=== PATIENT | female | born 1955 | race Caucasian/White ===

== ENCOUNTER → 2017-08-01 | Outpatient (CLI) | payer BC ==
--- NOTE | 2017-08-02 10:53 | MM ---
Reason for exam: screening (asymptomatic). Last mammogram was performed 13 years and 1 month ago. History: Patient is postmenopausal, has history of other cancer at age 52, and is nulliparous. Excisional biopsy of the right breast. Physical Findings: A clinical breast exam by your physician is recommended on an annual basis and results should be correlated with mammographic findings. MG Screening Mammo w CAD Bilateral CC and MLO view(s) were taken. Prior study comparison: March 23, 2016, mammogram, performed at [facility]. September 04, 2014, mammogram, performed at [facility]. The breast tissue is extremely dense which could obscure a lesion on mammography. Stable benign calcifications. There is no discrete abnormality. No significant changes when compared with prior studies. ASSESSMENT: Benign, BI-RAD 2 RECOMMENDATION: Routine screening mammogram of both breasts in 1 year.
== END | disposition home or self-care (01) ==
LOC: RADMAMWWP 10:58
PROVIDERS: ATTEND Internal Medicine
DX: Z12.31 Encounter for screening mammogram for malignant neoplasm of breast (principal)

== ENCOUNTER → 2017-10-06 | Outpatient (CLI) | payer BC ==
[2017-10-06 12:31] LABS: HCT 42.3 % (34.0-46.0); HGB 13.8 gm/dL (11.4-16.0); MCH 33.6 pg (25.0-35.0); MCHC 32.6 g/dL (31.0-37.0); MCV 103.2 fL (80.0-100.0); Macrocytosis Slight; Mean Platelet Volume 6.9; Platelet Count 234 k/uL (150-450); RDW 12.9 % (11.5-15.5); WBC 5.4 k/uL (3.8-10.6)
[2017-10-06 13:59] LABS: Erythrocyte Sedimentation Rate 5 mm/hr (0-20)
[2017-10-06 19:04] LABS: Gliadin AB IgA, Unit 0.7 U/mL
== END | disposition home or self-care (01) ==
LOC: LABWHC1 11:47
PROVIDERS: ATTEND Internal Medicine Gastroenterology
DX: K52.9 Noninfective gastroenteritis and colitis, unspecified (principal)
CPT/HCPCS: 36415; 83516; 85027; 85652; 86140

== ENCOUNTER 2017-10-19 08:22 | Day surgery (SDC) | payer BC ==
[2017-10-14 13:29] VITALS: BMI 24.2
[~2017-10-19 08:22] MED LIST: LACTATED RINGERS 1,000 ML IV SCH
[2017-10-19 08:59] VITALS: RESP 18; TEMP 97.8
[2017-10-19] MEDS ORDERED: LACTATED RINGERS 1,000 ML IV ONE (09:00)
[2017-10-19] MEDS ORDERED: LIDOCAINE 1% 20 ML VIAL (10MG/ML) FOR IV START INTRADERMA ONE (09:00)
[2017-10-19] MEDS ORDERED: PROPOFOL 10 MG/ML 20 ML VIAL IV ONE (09:30)
--- NOTE | 2017-10-19 09:45 | P.PCN ---
Date of Procedure: 10/19/17 Procedure(s) Performed: BRIEF HISTORY: Patient is a 62-year-old pleasant 1 female, scheduled for an elective colonoscopy as a part of evaluation of chronic diarrhea for the last several months duration. She has 4-5 loose watery bowel movements daily. She denies any rectal bleeding. PROCEDURE PERFORMED: Colonoscopy with biopsy. PREOPERATIVE DIAGNOSIS: Chronic diarrhea. IV sedation per Anesthesia. PROCEDURE: After informed consent was obtained, the patient, was brought into the endoscopy unit. IV sedation was administered by Anesthesia under continuous monitoring. Digital rectal examination was normal. Initially the Olympus CF- 160 flexible video colonoscope was then inserted in the rectum, gradually advanced into the cecum without any difficulty. Careful examination was performed as the scope was gradually being withdrawn. Ileocecal valve and the appendiceal orifice were visualized and appeared normal. Prep was excellent. Mucosa of the cecum, ascending colon, transverse colon, descending colon, sigmoid colon, and rectum appeared normal. Random biopsies were done from the ascending and descending colon to rule out Santos scope/collagenous colitis Retroflexion was performed in the rectum and no lesions were seen. The patient tolerated the procedure well. IMPRESSION: Normal-appearing colon from rectum to cecum with no evidence of colitis or colorectal neoplasia. RECOMMENDATIONS: Findings of this examination were discussed with the patient as well as her family. She was advised to follow with the biopsy results. She can have a repeat colonoscopy in 10 years.
[2017-10-19 10:17] VITALS: BP 155/71; PULSE 77
== END 2017-10-19 10:30 | disposition home or self-care (01) ==
LOC: ORWHC2ENDO 08:22
PROVIDERS: ATTEND Internal Medicine Gastroenterology
DX: K52.9 Noninfective gastroenteritis and colitis, unspecified (principal); I10 Essential (primary) hypertension; E07.9 Disorder of thyroid, unspecified; Z79.890 Hormone replacement therapy; Z79.899 Other long term (current) drug therapy; Z88.2 Allergy status to sulfonamides
CPT/HCPCS: 88305; 45380; J2704

== ENCOUNTER → 2018-08-02 | Outpatient (CLI) | payer BC ==
--- NOTE | 2018-08-02 11:24 | BD ---
EXAMINATION TYPE: Axial Bone Density DATE OF EXAM: 08/02/2018 COMPARISON: NONE CLINICAL HISTORY: post menopausal Height: 5'1 Weight: 122 FRAX RISK QUESTIONS: Alcohol (3 or more units per day): y Secondary Osteoporosis: RISK FACTORS HISTORY OF: Active: n Postmenopausal woman: y Take estrogen and/or progesterone medications: y How lon years MEDICATIONS: Thyroid Medications: Which medication: Synthroid How Lon years Additional Medications: high blood pressure, anti depressant, Additional History: hysterectomy age 52 cervical cancer EXAM MEASUREMENTS: Bone mineral densitometry was performed using the [facility]. Bone mineral density as measured about the Lumbar spine is: ----- L1-L4(G/cm2): 1.172 T Score Values are as follows: ----- L2: -0.2 ----- L3: 0.1 ----- L4: 0.2 ----- L1-L4: -0.1 Bone mineral density about the R hip (g/cm2): 0.949 Bone mineral density about the L hip (g/cm2): 0.956 T Score values are as follows: -----R Neck: -0.6 -----L Neck: -0.6 -----R Total: 0.3 -----L Total: 0.1 IMPRESSION: No evidence for osteoporosis or osteopenia. NOTE: T-SCORE=SD OF THE YOUNG ADULT MEAN.
--- NOTE | 2018-08-04 12:34 | MM ---
Reason for exam: screening (asymptomatic). Last mammogram was performed 1 year ago. History: Patient is postmenopausal, has history of endometrial cancer at age 52, and is nulliparous. Excisional biopsy of the right breast. Took estrogen for 11 years. Physical Findings: A clinical breast exam by your physician is recommended on an annual basis and results should be correlated with mammographic findings. MG Screening Mammo w CAD Bilateral CC and MLO view(s) were taken. Prior study comparison: August 01, 2017, bilateral MG screening mammo w CAD. March 23, 2016, mammogram, performed at [facility]. The breast tissue is extremely dense which could obscure a lesion on mammography. Benign appearing bilateral calcifications. No suspicious abnormality. No significant changes when compared with prior studies. ASSESSMENT: Benign, BI-RAD 2 RECOMMENDATION: Routine screening mammogram of both breasts in 1 year.
== END | disposition home or self-care (01) ==
LOC: RADMAMWWP 10:19
PROVIDERS: ATTEND Obstetrics & Gynecology
DX: Z12.31 Encounter for screening mammogram for malignant neoplasm of breast (principal); N95.1 Menopausal and female climacteric states
CPT/HCPCS: 77067; 77080

== ENCOUNTER → 2018-08-09 | Outpatient (CLI) | payer BC ==
--- NOTE | 2018-08-09 09:46 | CT ---
EXAMINATION TYPE: CT abdomen w con DATE OF EXAM: 08/09/2018 COMPARISON: NONE HISTORY: 63-year-old female with elevated liver enzymes. No complaints at time of scan TECHNIQUE: Contiguous axial scanning of the abdomen following administration of 100 ml Isovue 300 IV contrast. Delayed images through the kidneys and coronal/sagittal reconstructions performed. CT DLP: 298.4 mGycm Automated exposure control for dose reduction was used. FINDINGS: Heart normal size without pericardial effusion. Lung bases clear without pleural effusion. Small hiatal hernia. Liver mildly enlarged 18.4 cm. There is low attenuation suggesting underlying hepatic steatosis. Scat tered cysts are present measuring up to 2.7 cm on the left. Geographic areas of hyperattenuation are present suggestive along the anterior capsule, carlo hepatis, and gallbladder fossa compatible with f ocal fatty sparing. There are some areas of heterogeneous enhancement that follows the blood pool and progressively enlar ge on delayed kidney images continuing to show similar enhancement as the blood pool, for example, ri ght liver lobe axial image 22 measuring 1.5 cm. There is an small area of capsular retraction along t he anterior mid liver segment IVb that also shows some hypodensity on initial postcontrast sequence b ut internal enhancement on the delayed kidney images, for example, axial image 17 and 26. No biliary ductal dilatation. There is a small diverticulum of the second portion of the duodenum pro jecting behind the pancreatic head region. Portal venous system is patent. Gallbladder, renal glands, kidneys, spleen, and pancreas within normal limits. Multiple surgical clips along the iliac chains from prior lymph node dissection. Mild scattered stool without pericolonic inflammatory change. The pelvis is not imaged. No mesenteric or retroperitoneal lymphadenopathy. Bones: Osteopenia with facet arthropathy lower lumbar spine. There is an irregular area of patchy scl erosis within the T9 vertebral body that may represent a hemangioma, however its axial image 5 and sa gittal image 45. IMPRESSION: 1. MILD HEPATOMEGALY (18.4 CM) WITH MARKED HEPATIC STEATOSIS. CORRELATE WITH LFT's, LIPID PROFILE, AN D PATIENT RISK FACTORS. 2. AREA OF CAPSULAR RETRACTION WITH HETEROGENEOUS DENSITY AND DELAYED ENHANCEMENT ALONG ANTERIOR SEGM ENT 4B OF THE LIVER. THIS COULD REPRESENT SOME FOCAL FIBROSIS. CORRELATE WITH CA-19-9 LEVELS TO EXCL UDE THE LESS LIKELY POSSIBILITY OF A SMALL EARLY PERIPHERAL CHOLANGIOCARCINOMA. 6 MONTH FOLLOW-UP CT OR MRI CAN REASSESS. 3. SOME SCATTERED AREAS OF FOCAL FATTY SPARING IN THE LIVER ALONG WITH A COUPLE HEMANGIOMAS AND SCATT ERED BENIGN CYSTS. 4. INDETERMINATE SCLEROTIC LESION WITHIN THE T9 VERTEBRAL BODY. POSSIBLE HEMANGIOMA. CORRELATE WITH A [place] AVAILABLE OUTSIDE IMAGING TO ENSURE STABILITY. THE ONLY IMAGING AVAILABLE CURRENTLY IN THE SYSTEM ARE PET ONLY IMAGES FROM 2012.
== END ==
LOC: RADCTMAIN 07:53
PROVIDERS: ATTEND Internal Medicine
DX: K76.0 Fatty (change of) liver, not elsewhere classified (principal); R16.0 Hepatomegaly, not elsewhere classified; D18.00 Hemangioma unspecified site; K76.89 Other specified diseases of liver
CPT/HCPCS: 74160; Q9967

== ENCOUNTER → 2018-08-30 | Outpatient (CLI) | payer BC | END | disposition home or self-care (01) | LOC: LABWHC1 13:09 | DX: S24.113A Complete lesion at T7-T10 level of thoracic spinal cord, initial encounter (principal); K76.0 Fatty (change of) liver, not elsewhere classified; K76.9 Liver disease, unspecified | CPT/HCPCS: 36415; 86301 ==

== ENCOUNTER → 2018-09-18 | Outpatient (CLI) | payer BC ==
[2018-09-18 12:01] LABS: Blood Urea Nitrogen 6 mg/dL (7-17)
--- NOTE | 2018-09-18 13:27 | MR ---
EXAMINATION TYPE: MR thoracic spine wo/w con DATE OF EXAM: 09/18/2018 COMPARISON: CT scan 08/09/2018 HISTORY: Spinal cord lesion, thoracic, fell down stairs CONTRAST: Standard multiplanar, multisequence MRI departmental protocol utilizing 5.5 mL intravenous Gadavist g adolinium contrast. FINDINGS: There is a sclerotic focus on T2 imaging within the T9 segment corresponding to the density seen by CT scan. There may be minimal peripheral punctate enhancement. There appears to be a second sclerotic density at the approximate levels T6. Alignment is anatomic. Vertebral body height and disc interspace maintained. No abnormal signal or en hancement within the visualized spinal cord. No evidence of disc herniation or canal stenosis. No foraminal encroachment. No abnormal signal the surrounding paraspinal soft tissues. Incidental note is made of multiple hepat ic cysts. Incidental note is made of degenerative disc disease involving the mid and lower cervical spine. IMPRESSION: 1. No disc herniation, canal stenosis or spinal cord lesion. 2. Sclerotic lesion seen at T9 by previous CT scan and similar lesion seen in T6 is also noted by MRI with minimal nonspecific enhancement. Finding is nonspecific but likely benign, however, due to the multiplicity of lesions and patient's history of malignancy recommend either a bone scan or PET scan to assess for activity to exclude malignancy.
== END ==
LOC: RADMRIMAIN 11:20
PROVIDERS: ATTEND Internal Medicine
DX: M48.8X4 Other specified spondylopathies, thoracic region (principal)
CPT/HCPCS: 82565; 84520; 72157; 36415; A9585

== ENCOUNTER → 2019-01-02 | Outpatient (CLI) | payer BC ==
[2019-01-02 13:35] LABS: Prothrombin Time 10.8 sec (9.0-12.0)
[2019-01-02 18:18] LABS: Albumin 4.5 g/dL (3.80-4.90)
[2019-01-02 19:30] LABS: Hepatitis A Antibody IgM Non-Reactive (Non-Reactive); Hepatitis B Core IgM Non-Reactive (Non-Reactive)
[2019-01-05 12:20] LABS: Alpha 1 Anti-Trypsin 146 mg/dL (90 - 200)
== END ==
LOC: LABWHC1 12:37
PROVIDERS: ATTEND Internal Medicine
DX: K75.81 Nonalcoholic steatohepatitis (NASH) (principal)
CPT/HCPCS: 36415; 80074; 82040; 82103; 82104; 82390; 84450; 85610

== ENCOUNTER 2019-06-23 13:21 | Emergency (ER) | payer BC ==
[2019-06-23 14:41] LABS: Basophils % (A) 1 %; Eosinophils # (A) 0.1 k/uL (0-0.7); Eosinophils % (A) 1 %; HGB 12.8 gm/dL (11.4-16.0); Lymphocytes # (A) 1.1 k/uL (1.0-4.8); Lymphocytes % (A) 24 %; MCH 35.7 pg (25.0-35.0); MCHC 32.8 g/dL (31.0-37.0); Macrocytosis Moderate; Mean Platelet Volume 7.5; Monocytes # (A) 0.2 k/uL (0-1.0); Monocytes % (A) 5 %; Neutrophils # (A) 3.2 k/uL (1.3-7.7); Neutrophils % (A) 66 %; Platelet Count 105 k/uL (150-450); RBC 3.58 m/uL (3.80-5.40); RDW 12.9 % (11.5-15.5); WBC 4.8 k/uL (3.8-10.6)
--- NOTE | 2019-06-23 14:56 | ED ---
General Adult HPI - General Chief complaint: Weakness Stated complaint: Weakness Time Seen by Provider: 06/23/19 13:34 Source: patient Mode of arrival: wheelchair Limitations: no limitations - History of Present Illness Initial comments: Patient is a 64-year-old female presenting to the emergency department with chief complaint of weakness. Patient reports about a week ago she has developed weakness in bilateral lower extremities which has increased in severity over the past 2 days. Patient reports she has intermittent numbness and tingling althou gh she doesn't have any right now. Patient reports difficulty with ambulation. Patient also reports that both of her legs are shaky, however the states that he was not able to detect any shakiness over the past week. Patient reports she has been having difficulty sleeping and night. Patient reports a previous back injury several years ago that went undiagnosed for 3 months before it was detected by imaging at this hospital. Patient reports she has had no issues since then. Patient also reports that a few days ago she dropped a can on her left foot which could explain the ecchymosis in the region. Patient reports no complaints above her pelvic region. Patient denies any pain. Patient denies saddle anesthesia, urinary or bowel incontinence. - Related Data Home Medications Medication Instructions Recorded Confirmed ALPRAZolam [Xanax] 1 mg PO DAILY PRN 10/14/17 10/19/17 Citalopram Hydrobromide [CeleXA] 40 mg PO DAILY 10/14/17 10/19/17 Estradiol 1 mg MISCELLANE DAILY 10/14/17 10/19/17 Levothyroxine Sodium [Synthroid] 200 mcg PO DAILY 10/14/17 10/19/17 Ramipril [Altace] 10 mg PO DAILY 10/14/17 10/14/17 Allergies Allergy/AdvReac Type Severity Reaction Status Date / Time Sulfa (Sulfonamide Allergy Unknown Rash/Hives Verified 06/23/19 13:25 Antibiotics) Review of Systems ROS Statement: Those systems with pertinent positive or pertinent negative responses have been documented in the HPI. ROS Other: All systems not noted in ROS Statement are negative. Past Medical History Past Medical History: Cancer, Thyroid Disorder Additional Past Medical History / Comment(s): CERVICAL CANCER (2007), SUMMER ALLERGIES., STATES DIARRHEA DAILY FOR 2-3 YEARS. History of Any Multi-Drug Resistant Organisms: None Reported Past Surgical History: Appendectomy, Hysterectomy Additional Past Surgical History / Comment(s): BREAST BX. Past Anesthesia/Blood Transfusion Reactions: Previous Problems w/ Anesthesia Additional Past Anesthesia/Blood Transfusion Reaction / Comment(s): DIFFICULT INTUBATION- PT HAS PAPER FROM [facility]. Past Psychological History: Anxiety, Depression Smoking Status: Never smoker Past Alcohol Use History: Daily Past Drug Use History: None Reported - Past Family History Father Family Medical History: Cancer Additional Family Medical History / Comment(s): BRAIN & LUNG CANCER Brother(s) Family Medical History: Cancer Additional Family Medical History / Comment(s): SKIN CANCER General Exam Limitations: no limitations General appearance: alert, in no apparent distress Head exam: Present: atraumatic, normocephalic, normal inspection Eye exam: Present: normal appearance, PERRL, EOMI Pupils: Present: normal accommodation ENT exam: Present: normal exam, mucous membranes moist, normal external ear exam Neck exam: Present: normal inspection, full ROM Respiratory exam: Present: normal lung sounds bilaterally Cardiovascular Exam: Present: regular rate, normal rhythm, normal heart sounds Extremities exam: Present: full ROM, normal capillary refill, other (+2 ulnar and radial pulses bilaterally. No numbness). Absent: normal inspection (Mild ecchymosis on the left foot), tenderness, pedal edema, joint swelling, calf tenderness Back exam: Present: normal inspection, full ROM. Absent: tenderness, CVA tenderness (R), CVA tenderness (L), muscle spasm, paraspinal tenderness, vertebral tenderness Neurological exam: Present: alert, oriented X3, CN II-XII intact Psychiatric exam: Present: normal affect, normal mood Skin exam: Present: warm, intact, normal color Course Vital Signs 06/23/19 06/23/19 06/23/19 13:23 13:39 14:00 Temperature 97.5 F L Pulse Rate 66 73 Respiratory 16 20 19 Rate Blood Pressure 144/89 161/76 160/78 O2 Sat by Pulse 98 99 98 Oximetry 06/23/19 06/23/19 06/23/19 14:30 15:00 15:30 Temperature Pulse Rate 105 H 70 Respiratory 18 18 Rate Blood Pressure 144/89 144/89 162/90 O2 Sat by Pulse 98 Oximetry EKG Findings - EKG Comments: EKG Findings:: Prolonged QT, normal sinus rhythm. Ventricular rate 79 DC interval 172, QRS duration 80, QT/QTC 436/499 Medical Decision Making - Medical Decision Making Patient is 64-year-old male presenting to emergency Department with chief complaint of weakness. It appears the patient only has bilateral lower extremity weakness and is causing difficulties in relation. Patient has no pain whatsoever. Physical examination patient is 5 out of 5 strength with normal reflexes. No numbness. +[address] of the lumbar spine is unremarkable. I do suspect some no deficits although no signs of a stroke. This patient is f urther evaluation an escalation of care. Dr. Meyers also examined the patient she will be transferred to [facility] for further medical management. - Lab Data Result diagrams: 06/23/19 13:45 06/23/19 13:45 Lab Results 06/23/19 06/23/19 06/23/19 Range/Units 13:45 13:45 15:01 WBC 4.8 (3.8-10.6) k/uL RBC 3.58 L (3.80-5.40) m/uL Hgb 12.8 (11.4-16.0) gm/dL Hct 39.0 (34.0-46.0) % MCV 109.0 H (80.0-100.0) fL MCH 35.7 H (25.0-35.0) pg MCHC 32.8 (31.0-37.0) g/dL RDW 12.9 (11.5-15.5) % Plt Count 105 L (150-450) k/uL Neutrophils % 66 % Lymphocytes % 24 % Monocytes % 5 % Eosinophils % 1 % Basophils % 1 % Neutrophils # 3.2 (1.3-7.7) k/uL Lymphocytes # 1.1 (1.0-4.8) k/uL Monocytes # 0.2 (0-1.0) k/uL Eosinophils # 0.1 (0-0.7) k/uL Basophils # 0.0 (0-0.2) k/uL Macrocytosis Moderate Sodium 138 (137-145) mmol/L Potassium 4.5 (3.5-5.1) mmol/L Chloride 101 (98-107) mmol/L Carbon Dioxide 26 (22-30) mmol/L Anion Gap 11 mmol/L BUN 9 (7-17) mg/dL Creatinine 0.55 (0.52-1.04) mg/dL Est GFR (CKD-EPI)AfAm >90 (>60 ml/min/1.73 sqM) Est GFR (CKD-EPI)NonAf >90 (>60 ml/min/1.73 sqM) Glucose 75 (74-99) mg/dL Calcium 8.2 L (8.4-10.2) mg/dL Total Bilirubin 1.3 (0.2-1.3) mg/dL AST 279 H (14-36) U/L ALT 65 H (9-52) U/L Alkaline Phosphatase 225 H (38-126) U/L Total Protein 7.4 (6.3-8.2) g/dL Albumin 3.5 (3.5-5.0) g/dL Urine Color Light Yellow Urine Appearance Clear (Clear) Urine pH 6.5 (5.0-8.0) Ur Specific [place] 1.003 (1.001-1.035) Urine Protein Negative (Negative) Urine Glucose (UA) Negative (Negative) Urine Ketones Negative (Negative) Urine Blood Negative (Negative) Urine Nitrite Negative (Negative) Urine Bilirubin Negative (Negative) Urine Urobilinogen <2.0 (<2.0) mg/dL Ur Leukocyte Esterase Trace H (Negative) Urine WBC 1 (0-5) /hpf Ur Squamous Epith Cells <1 (0-4) /hpf Disposition Clinical Impression: Bilateral leg weakness Disposition: OTHER INSTITUTION NOT DEFINED Condition: Stable Instructions (If sedation given, give patient instructions): Weakness (ED) Additional Instructions: Patient will be transferred Is patient prescribed a controlled substance at d/c from ED?: No Referrals: None,Stated [REFERRING] - 1-2 days Time of Disposition: 16:25 - Out of Hospital Transfer - Req. Specs Out of Hospital Transfer - Requested Specifics: Other Emergency Center ([facility]
--- NOTE | 2019-06-23 14:56 | CT ---
EXAMINATION TYPE: CT lumbar spine wo con DATE OF EXAM: 06/23/2019 2:38 PM COMPARISON: None HISTORY: Parasthesias bilateral lower extremities CT DLP: 644.3 mGycm Automated exposure control for dose reduction was used. Unenhanced CT of the lumbar spine was performed. Bone and soft tissue window settings are submitted as well as coronal and sagittal reconstructions. Lumbar vertebra have normal alignment. Disc spaces are fairly normal. Abdominal aorta is atheromatous . The posterior elements are intact. There is no compression fracture. There is mild posterior disc b ulging at L3-4 L4-5. There is no lumbar paraspinal mass. There is no focal bone destruction. Sacroili ac joints appear intact. There are surgical clips in the pelvis. IMPRESSION: Minor degenerative disc changes in the lumbar spine. No fracture. No spinal stenosis.
[2019-06-23 15:08] LABS: ALT 65 U/L (9-52); AST 279 U/L (14-36); African American GFR (CKD) >90 (>60 ml/min/1.73 sqM); Albumin 3.5 g/dL (3.5-5.0); Alkaline Phosphatase 225 U/L (38-126); Anion Gap 11 mmol/L; Blood Urea Nitrogen 9 mg/dL (7-17); Calcium 8.2 mg/dL (8.4-10.2); Carbon Dioxide 26 mmol/L (22-30); Chloride 101 mmol/L (98-107); Glucose 75 mg/dL (74-99); Non-African American GFR(CKD) >90 (>60 ml/min/1.73 sqM); Potassium 4.5 mmol/L (3.5-5.1); Sodium 138 mmol/L (137-145); Total Bilirubin 1.3 mg/dL (0.2-1.3); Total Protein 7.4 g/dL (6.3-8.2)
[2019-06-23 15:29] LABS: Appearance,Urine Clear (Clear); Bilirubin,Urine Negative (Negative); Blood,Urine Negative (Negative); Color,Urine Light Yellow; Glucose,Urine (UA) Negative (Negative); Ketones,Urine Negative (Negative); Leukocyte Esterase,Urine Trace (Negative); Nitrite,Urine Negative (Negative); PH, Urine 6.5 (5.0-8.0); Protein,Urine Negative (Negative); Specific Gravity,Urine 1.003 (1.001-1.035); Squamous Epithelial Cell,Urine <1 /hpf (0-4); Urobilinogen,Urine <2.0 mg/dL (<2.0); WBC,Urine 1 /hpf (0-5)
[2019-06-23] MEDS ORDERED: ACETAMINOPHEN TAB 325 MG TAB PO PRN (16:06)
[2019-06-23] MEDS ORDERED: HYDROmorphone 0.5 MG/0.5 ML SYRINGE IVP PRN (16:06)
[2019-06-23] MEDS ORDERED: MORPHINE SULFATE 4 MG/ML SYRINGE IV PRN (16:06)
[2019-06-23] MEDS ORDERED: KETOROLAC 30 MG/ML 1 ML VIAL IVP PRN (16:06)
[2019-06-23] MEDS ORDERED: ONDANSETRON 4 MG/2 ML VIAL IVP PRN (16:06)
[2019-06-23] MEDS ORDERED: NALOXONE 0.4 MG/ML 1 ML VIAL IV PRN (16:06)
[2019-06-23] MEDS ORDERED: IBUPROFEN 400 MG TAB PO PRN (16:06)
[2019-06-23] MEDS ORDERED: SODIUM CHLORIDE 0.9% 1,000 ML IV SCH (16:15)
[2019-06-23 21:09] VITALS: BP 138/87; PULSE 71; RESP 16; TEMP 98
== END 2019-06-23 19:20 | disposition other institution (70) ==
LOC: EC 13:21
DX: R53.1 Weakness (principal); F41.9 Anxiety disorder, unspecified; F32.9 Major depressive disorder, single episode, unspecified; E07.9 Disorder of thyroid, unspecified; Z79.890 Hormone replacement therapy; Z79.899 Other long term (current) drug therapy; Z88.2 Allergy status to sulfonamides; Z85.41 Personal history of malignant neoplasm of cervix uteri
CPT/HCPCS: 36415; 72131; 80053; 81001; 85025; 93005; 99285

== ENCOUNTER → 2019-08-27 | Outpatient (CLI) | payer BC ==
[2019-08-27 10:28] LABS: Basophils % (A) 1 %; Eosinophils # (A) 0.1 k/uL (0-0.7); Eosinophils % (A) 2 %; HCT 35.5 % (34.0-46.0); HGB 11.6 gm/dL (11.4-16.0); Lymphocytes % (A) 20 %; MCHC 32.7 g/dL (31.0-37.0); Mean Platelet Volume 8.1; Monocytes # (A) 0.4 k/uL (0-1.0); Monocytes % (A) 9 %; Neutrophils % (A) 64 %; Platelet Count 198 k/uL (150-450); RBC 3.64 m/uL (3.80-5.40); RDW 12.1 % (11.5-15.5); WBC 4.7 k/uL (3.8-10.6)
[2019-08-27 10:41] LABS: MCV 97.6 fL (80.0-100.0)
[2019-08-27 12:02] LABS: Erythrocyte Sedimentation Rate 34 mm/hr (0-20)
[2019-08-27 17:12] LABS: % Iron Saturation 12.37 (12.00-45.00); Albumin 3.6 g/dL (3.80-4.90); Albumin/Globulin Ratio 1.57 (1.60-3.17); Bilirubin, Conjugated 0.2 mg/dL (0.20-0.40); Bilirubin,Unconjugated 0.2 mg/dL; Ferritin 44.4 ng/mL (10.0-291.0); Globulin 2.3 g/dL (1.6-3.3); Total Bilirubin 0.4 mg/dL (0.3-1.2); Total Protein 5.9 g/dL (6.2-8.2)
== END | disposition home or self-care (01) ==
LOC: LABWHC1 09:38
PROVIDERS: ATTEND Internal Medicine
DX: R74.8 Abnormal levels of other serum enzymes (principal)
CPT/HCPCS: 36415; 80076; 82550; 82607; 82728; 82747; 82977; 83540; 83550; 85025; 85652; 86301

== ENCOUNTER → 2019-08-27 | Outpatient (CLI) | payer BC ==
--- NOTE | 2019-08-27 16:20 | MR ---
MRCP HISTORY: Abnormal tumor marker Multiplanar multisequence imaging through the abdomen, three-dimensional reconstructions performed th rough the biliary system on an alternate workstation. Correlation to CT abdomen 08/09/2018 Multiple T2 intense foci scattered within the liver, low-attenuation foci as on CT correlate and are consistent with hepatic cysts as well as probable hemangiomas, liver is not enlarged. There is no sig nal drop on out of phase imaging to suggest hepatic steatosis as suggested on prior CT. The lung bases are clear, there is no pleural or pericardial effusion. Aorta shows normal caliber. Sp ela is not enlarged. Pancreas shows no mass. No retroperitoneal adenopathy evident. There is no dilated intra or extrahepatic biliary ducts. Gallbladder is normal. No evident gallstone. No filling defect within the biliary system to suggest choledocholithiasis. Suspect there is a duode nal diverticulum present. Kidneys are symmetric. IMPRESSION: No evident choledocholithiasis or biliary duct obstruction. Duodenal diverticulum. Findin gs in the liver may represent hemangiomas cysts but are not appropriately evaluated.
== END | disposition home or self-care (01) ==
LOC: RADMRIMAIN 08:30
PROVIDERS: ATTEND Physician Assistant
DX: K57.10 Diverticulosis of small intestine without perforation or abscess without bleeding (principal)
CPT/HCPCS: 74181

== ENCOUNTER 2019-11-16 | Day surgery (SDC) | payer BC | END 2019-11-16 14:16 | disposition home or self-care (01) | CPT/HCPCS: 88305; 43239; 45378; J2001; J2704 ==

== ENCOUNTER → 2020-08-18 | Outpatient (CLI) | payer BC ==
--- NOTE | 2020-08-19 11:25 | MM ---
Reason for exam: screening (asymptomatic). Last mammogram was performed 2 years and 1 month ago. History: Patient is postmenopausal, has history of other cancer at age 55, has history of endometrial cancer at age 52, and is nulliparous. Excisional biopsy of the right breast. Took estrogen for 11 years. Physical Findings: A clinical breast exam by your physician is recommended on an annual basis and results should be correlated with mammographic findings. MG 3D Screening Mammo W/Cad Bilateral CC and MLO view(s) were taken. Prior study comparison: August 02, 2018, bilateral MG screening mammo w CAD. August 01, 2017, bilateral MG screening mammo w CAD. The breast tissue is extremely dense which could obscure a lesion on mammography. There are benign appearing round calcifications. There is nodularity bilaterally. This finding is changed when compared with previous exams on left side. ASSESSMENT: Incomplete: need additional imaging evaluation, BI-RAD 0 RECOMMENDATION: Ultrasound of the left breast. [facility] will attempt to contact patient to return for ultrasound. REX
== END | disposition home or self-care (01) ==
LOC: RADMAMWWP 09:48
PROVIDERS: ATTEND Internal Medicine
DX: Z12.31 Encounter for screening mammogram for malignant neoplasm of breast (principal)
CPT/HCPCS: 77063; 77067

== ENCOUNTER → 2020-08-25 | Outpatient (CLI) | payer BC ==
--- NOTE | 2020-08-25 11:36 | USB ---
Reason for exam: additional evaluation requested from abnormal screening. History: Patient is postmenopausal, has history of other cancer at age 55, has history of endometrial cancer at age 52, and is nulliparous. Excisional biopsy of the right breast. Took estrogen for 11 years. Physical Findings: Nurse Summary: bilateral nodularity, all soft, movable (nurse ts). US Breast Workup Limited LT Left limited breast ultrasound including focal area of concern, retroareolar and axilla demonstrates a 5 x 3 x 5mm taller that wide, solid, hypoechoic, vascular lesion at 2 o'clock, a 5 x 2mm oval lymph node at 2 o'clock and a 8mm oval lymph node at the axilla tail. These results were verbally communicated with the patient and result sheet given to the patient on 08/25/20. ASSESSMENT: Suspicious, BI-RAD 4 RECOMMENDATION: Ultrasound core biopsy of the left breast. Called office with mammographic findings and has scheduled an appointment for the patient for 09/25/20 at 12:[address] Caldwell. Biopsy scheduled for 09/08/20 at 10:30. PRELIMINARY REPORT CALLED AND FAXED TO DR. CALDWELL ON 08/25/20.
== END | disposition home or self-care (01) ==
LOC: RADUSWWP 09:01
PROVIDERS: ATTEND Internal Medicine
DX: R92.8 Other abnormal and inconclusive findings on diagnostic imaging of breast (principal)

== ENCOUNTER → 2020-08-28 | Outpatient (CLI) | payer BC | END | disposition home or self-care (01) | LOC: LABWHC1 10:36 | PROVIDERS: ATTEND Internal Medicine | DX: E03.9 Hypothyroidism, unspecified (principal) | CPT/HCPCS: 36415; 84439; 84443; 84481 ==

== ENCOUNTER → 2020-09-08 | Day surgery (SDC) | payer BC ==
[2020-09-08 09:52] VITALS: RESP 16
[2020-09-08 11:54] VITALS: BP 136/68; PULSE 78; TEMP 97.8
--- NOTE | 2020-09-08 12:08 | USB ---
EXAMINATION TYPE: US biopsy breast VAD LT, MG post biopsy diagnostic mammo LT wo CAD DATE OF EXAM: 09/08/2020 CLINICAL HISTORY: 65-year-old female R92.8 ABN MAMMO. TECHNIQUE: Ultrasound guided core biopsy of the left breast. COMPARISON: 08/25/2020 and 08/18/2020 FINDINGS: The procedure of ultrasound guided core biopsy was explained to the patient. Benefits, alternatives, and risks were discussed. An informed consent was then obtained. The 2:00 vertically oriented area in the periphery of the left breast is identified and targeted for biopsy. The patient was placed in supine positioning for imaging and for the procedure. The overlying skin was prepped and draped in usual sterile fashion. Lidocaine was used as anesthetic into the skin followed by lidocaine/epinephrine into the subcutaneous tissue up to area of concern in the 2:00 left breast. Under ultrasound guidance, a 13-gauge vacuum-assisted mammotome Elite biopsy gun device was used to obtain 7 core samples. Following this, a wing clip was left at the site of biopsy. The patient tolerated the procedure well without any immediate complication. The patient was kept in the radiology department for short stay after the procedure and then discharged home in stable condition. Post biopsy mammogram shows wing clip high in the axilla. This is slightly more superiorly located compared to the initially questioned nodularity in the upper outer quadrant. Overall low clinical suspicion, possible lymph node. If benign results, six-month follow-up mammogram will be recommended. IMPRESSION: Successful, uncomplicated ultrasound guided core biopsy of area of concern in the 2:00 periphery of the left breast, full pathology results to follow. Note that the initially questioned nodularity seen on mammogram is located slightly more inferiorly. If current biopsy results are benign, six-month follow-up mammogram will be recommended. Pathology Results: Benign LEFT BREAST, 2:00, CORE BIOPSY: Benign lymph node and fibroadipose tissue. Recommendation Follow up ultrasound of the left breast in 6 months. REX
== END ==
LOC: RADUSWWP 09:22
PROVIDERS: ATTEND Surgery
DX: N64.89 Other specified disorders of breast (principal); R92.8 Other abnormal and inconclusive findings on diagnostic imaging of breast
CPT/HCPCS: 88305; 77065; 19083; A4648; J2001

== ENCOUNTER → 2020-09-30 | Outpatient (CLI) | payer BC ==
[2020-09-30 15:51] LABS: T4, Free (Free Thyroxine) 1.9 ng/dL (0.80-1.80)
== END | disposition home or self-care (01) ==
LOC: LABWHC1 09:37
PROVIDERS: ATTEND Internal Medicine
DX: E03.9 Hypothyroidism, unspecified (principal)
CPT/HCPCS: 36415; 84439; 84443; 84481

== ENCOUNTER → 2020-11-07 | Outpatient (CLI) | payer OTHER ==
[2020-11-07 10:59] LABS: ALT 26 U/L (4-34); AST 25 U/L (14-36); African American GFR (CKD) >90 (>60 ml/min/1.73 sqM); Albumin 4.4 g/dL (3.5-5.0); Albumin/Globulin Ratio 1.4; Alkaline Phosphatase 111 U/L (38-126); Anion Gap 5 mmol/L; Blood Urea Nitrogen 23 mg/dL (7-17); Calcium 9.8 mg/dL (8.4-10.2); Carbon Dioxide 30 mmol/L (22-30); Chloride 103 mmol/L (98-107); Globulin 3.1 g/dL; Glucose 95 mg/dL (74-99); Non-African American GFR(CKD) >90 (>60 ml/min/1.73 sqM); Potassium 4.7 mmol/L (3.5-5.1); Sodium 138 mmol/L (137-145); Total Bilirubin 0.5 mg/dL (0.2-1.3); Total Protein 7.5 g/dL (6.3-8.2)
[2020-11-07 11:16] LABS: T4, Free (Free Thyroxine) 1.84 ng/dL (0.78-2.19)
[2020-11-07 15:57] LABS: Basophils # (A) 0.05 X 10*3/uL (0.00-0.10); Basophils % (A) 0.9 %; Eosinophils # (A) 0.11 X 10*3/uL (0.04-0.35); HCT 38.6 % (37.2-46.3); HGB 12.5 g/dL (12.0-15.0); Lymphocytes # (A) 1.95 X 10*3/uL (0.90-5.00); MCH 29.6 pg (27.0-32.0); MCHC 32.4 g/dL (32.0-37.0); MCV 91.3 fL (80.0-97.0); Mean Platelet Volume 10.5 fL (9.5-12.2); Monocytes # (A) 0.46 X 10*3/uL (0.20-1.00); Monocytes % (A) 8.5 %; Neutrophils # (A) 2.83 X 10*3/uL (1.80-7.70); Neutrophils % (A) 52.2 %; Platelet Count 225 X 10*3/uL (140-440); RBC 4.23 X 10*6/uL (4.10-5.20); RDW 12.5 % (11.5-14.5); WBC 5.42 X 10*3/uL (4.50-10.00)
== END | disposition home or self-care (01) ==
LOC: LABWHC1 09:08
PROVIDERS: ATTEND Internal Medicine
DX: E03.9 Hypothyroidism, unspecified (principal); E83.52 Hypercalcemia; E53.8 Deficiency of other specified B group vitamins
CPT/HCPCS: 36415; 80053; 82607; 83970; 84439; 84443; 84481; 85025

== ENCOUNTER → 2021-01-14 | Outpatient (CLI) | payer OTHER ==
[2021-01-14 10:42] LABS: Ionized Calcium 5.8 mg/dL (4.5-5.3)
== END | disposition home or self-care (01) ==
LOC: LABWHC1 09:28
PROVIDERS: ATTEND Internal Medicine
DX: E03.9 Hypothyroidism, unspecified (principal); E83.52 Hypercalcemia
CPT/HCPCS: 36415; 82330; 84443

== ENCOUNTER → 2021-03-23 | Outpatient (CLI) | payer BC ==
--- NOTE | 2021-03-23 08:47 | USB ---
EXAMINATION TYPE: US breast limited LT DATE OF EXAM: 03/23/2021 COMPARISON: Mammogram same date, prior ultrasound dated 08/25/2020 CLINICAL HISTORY: R92.8 Abnormal Mammogram. Findings: Left breast ultrasound was performed from 1-2 o'clock and in the retroareolar region and left axillar y tail. Previously noted lymph nodes and previously biopsied lymph node are not seen on this examination. IMPRESSION: No sonographic evidence for malignancy. BI-RADS 1, negative. Patient is due for her bilateral mammogram in August 2021.
--- NOTE | 2021-03-23 13:54 | MM ---
Reason for exam: history of benign breast biopsy. Last mammogram was performed 6 months ago. History: Patient is postmenopausal, has history of other cancer at age 55, has history of endometrial cancer at age 52, and is nulliparous. Benign US biopsy breast VAD LT of the left breast, September 08, 2020. Excisional biopsy of the right breast. Took estrogen for 1 year. Physical Findings: Nurse did not find any significant physical abnormalities on exam. MG 3D Diag Mammo W/Cad LT CC and MLO view(s) were taken of the left breast. Prior study comparison: September 08, 2020, left breast MG diagnostic mammo LT wo CAD. August 25, 2020, left breast US breast workup limited LT. August 18, 2020, bilateral MG 3d screening mammo w/cad. The breast tissue is heterogeneously dense. This may lower the sensitivity of mammography. Left biopsy clip. These results were verbally communicated with the patient and result sheet given to the patient on 03/23/21. ASSESSMENT: Incomplete: need additional imaging evaluation, BI-RAD 0 RECOMMENDATION: Ultrasound of the left breast. (as per surgeon request)
== END | disposition home or self-care (01) ==
LOC: RADMAMWWP 07:57
PROVIDERS: ATTEND Surgery
DX: R92.2 Inconclusive mammogram (principal); Z78.0 Asymptomatic menopausal state
CPT/HCPCS: 77061; 77065